=== PATIENT | male | born 1970 | race Caucasian/White ===

== ENCOUNTER 2017-08-07 11:44 | Emergency (ER) | payer BC | END 2017-08-07 12:28 | disposition home or self-care (01) | LOC: ERS 11:44 | DX: M54.12 Radiculopathy, cervical region (principal); E11.9 Type 2 diabetes mellitus without complications; E78.5 Hyperlipidemia, unspecified; I10 Essential (primary) hypertension; I25.10 Atherosclerotic heart disease of native coronary artery without angina pectoris; F41.9 Anxiety disorder, unspecified; F32.9 Major depressive disorder, single episode, unspecified; Z79.84 Long term (current) use of oral hypoglycemic drugs; Z79.82 Long term (current) use of aspirin; Z79.899 Other long term (current) drug therapy | CPT/HCPCS: 99283 ==

== ENCOUNTER 2017-10-14 18:17 | Emergency (ER) | payer BC ==
[2017-10-14] MEDS ORDERED: HYDROcodone/Acetaminophen 10/325 mg Tablet ONE (18:45)
--- NOTE | 2017-10-14 20:41 | RAD ---
LEFT HAND THREE VIEW 10/14/17 HISTORY: Injury to the left third and fourth finger. COMPARISON: None. FINDINGS: There is a comminuted distal tuft fracture of the third finger distal phalanx. The fourth finger does not appear to have an acute injury. There does appear to be a fracture of the tuft of the second fin marcia, the index finger, in a transverse orientation. IMPRESSION: Comminuted fracture through the middle finger distal phalanx tuft and transversely oriented fracture of the index finger distal phalanx tuft. POS: DMITRIY
== END 2017-10-14 19:15 | disposition home or self-care (01) ==
LOC: ERS 18:17
DX: S62.631A Displaced fracture of distal phalanx of left index finger, initial encounter for closed fracture (principal); S62.633A Displaced fracture of distal phalanx of left middle finger, initial encounter for closed fracture; E78.5 Hyperlipidemia, unspecified; I10 Essential (primary) hypertension; E11.9 Type 2 diabetes mellitus without complications; F31.89 Other bipolar disorder; F41.9 Anxiety disorder, unspecified; W22.8XXA Striking against or struck by other objects, initial encounter; Y99.0 Civilian activity done for income or pay

== ENCOUNTER 2018-07-29 16:24 | Emergency (ER) | payer BC ==
--- NOTE | 2018-07-29 16:59 | RAD ---
Radiograph left ankle 3 views: HISTORY: 47-year-old male with persistent posttraumatic pain FINDINGS: Ankle mortise is symmetrical and congruent. No fracture or subluxation IMPRESSION: Negative
--- NOTE | 2018-07-29 17:01 | RAD ---
XR Foot Lt 3 View STANDARD History: [Pain] Comparison: None. Findings: Lisfranc interval is maintained. There is a curvilinear lucency of the medial articular mar gin of the proximal phalanx head at the interphalangeal joint of the great toe. Adjacent soft tissue swelling. This appears to be either a fracture versus capsular calcification. Impression: Either capsular mock band effect from calcification medial aspect of the great toe interp halangeal joint versus nondisplaced fracture the proximal phalanx head. Clinical correlation advised for focal tenderness.
[2018-07-29] MEDS ORDERED: Acetaminophen/Codeine 30-300mg Tablet ONE (17:42)
== END 2018-07-29 17:47 | disposition home or self-care (01) ==
LOC: ERS 16:24
DX: S93.602A Unspecified sprain of left foot, initial encounter (principal); E11.9 Type 2 diabetes mellitus without complications; I10 Essential (primary) hypertension; I25.10 Atherosclerotic heart disease of native coronary artery without angina pectoris; F41.9 Anxiety disorder, unspecified; F32.9 Major depressive disorder, single episode, unspecified; Z79.899 Other long term (current) drug therapy; Z79.84 Long term (current) use of oral hypoglycemic drugs; Z79.82 Long term (current) use of aspirin; V29.9XXA Motorcycle rider (driver) (passenger) injured in unspecified traffic accident, initial encounter

== ENCOUNTER 2019-02-16 16:00 | Emergency (ER) | payer BC ==
[2019-02-16] MEDS ORDERED: Fluorescein Opthalmic Strip ONE (16:55)
[2019-02-16] MEDS ORDERED: Proparacaine 0.5% Opth 15 ML BOT ONE (16:55)
== END 2019-02-16 17:55 | disposition home or self-care (01) ==
LOC: ERS 16:00
DX: H10.022 Other mucopurulent conjunctivitis, left eye (principal); E11.9 Type 2 diabetes mellitus without complications; I10 Essential (primary) hypertension; F41.9 Anxiety disorder, unspecified; F32.9 Major depressive disorder, single episode, unspecified; Z79.84 Long term (current) use of oral hypoglycemic drugs; Z79.82 Long term (current) use of aspirin; Z79.899 Other long term (current) drug therapy
CPT/HCPCS: 99283

== ENCOUNTER 2019-06-04 13:04 | Observation (INO) | payer BC ==
[2019-06-04 13:31] LABS: #Basophils 0.1 thou/uL (0.0-0.2); #Eosinphils 0.1 thou/uL (0.0-0.7); #Lymphocytes 1.9 thou/uL (1.20-3.40); #Monocytes 0.3 thou/uL (0.11-0.59); #Neutrophils 4.1 thou/uL (1.40-6.50); %Basophils 0.9 % (0.0-1.0); %Eosinophils 2.1 % (0.0-10.0); %Lymphocytes 29.1 % (21.0-51.0); %Neutrophils 62.9 % (42.0-75.0); Hemoglobin 15.4 g/dL (14.0-18.0); Mean Corpuscular HGB CONC 35.5 g/dL (32.0-36.0); Mean Platelet Volume 8.6 fL (7.4-10.4); Platelet Count 194 thou/uL (130-400); RBC Distribution Width 10.7 % (11.5-14.5); Red Blood Cell (RBC) Count 4.66 mill/uL (4.70-6.10); White Blood Cell (WBC) Count 6.6 thou/uL (4.8-10.8)
[2019-06-04 13:52] LABS: ALT (SGPT) 64 U/L (8-55); AST (SGOT) 27 U/L (5-34); Albumin 4.5 g/dL (3.5-5.0); Alkaline Phosphatase 69 U/L (40-110); Anion Gap 14 mmol/L (10-20); BUN (Urea Nitrogen) 13 mg/dL (8.9-20.6); Bilirubin, Total 0.7 mg/dL (0.2-1.2); Calc. Creatinine Clearance 0 mL/min (70-130); Calcium 9.2 mg/dL (7.8-10.44); Carbon Dioxide 20 mmol/L (22-29); Chloride 107 mmol/L (98-107); Estimated GFR-MDRD 76; Globulin 2.6 g/dL (2.4-3.5); Glucose 263 mg/dL (70-105); Protein, Total 7.1 g/dL (6.0-8.3); Sodium 137 mmol/L (136-145)
--- NOTE | 2019-06-04 14:07 | RAD ---
PORTABLE UPRIGHT FRONTAL CHEST: Date: 06/04/2019 HISTORY: Dizziness and chest tightness. FINDINGS: Multilead transvenous AICD present, inserted via left subclavian approach. No pneumothorax or pleural fluid. No focal consolidation or alveolar edema. IMPRESSION: No acute findings. POS: SJDI
[2019-06-04] MEDS ORDERED: Nitroglycerin 2% Ointment 1 INCH/1 GM Packet ONE (14:52)
[2019-06-04 15:34] VITALS: BMI 28.6
[2019-06-04] MEDS ORDERED: Acetaminophen 325 MG TAB PO PRN ×2 (15:47→16:57)
[2019-06-04] MEDS ORDERED: Ondansetron PF 4 MG/2 ML Vial IVP PRN ×2 (15:47→16:57)
[2019-06-04] MEDS ORDERED: Ondansetron ODT 4 MG TAB SL PRN (15:47)
[2019-06-04] MEDS ORDERED: Aspirin Chewable 81 MG TAB PO SCH (16:00)
[2019-06-04] MEDS ORDERED: Nitroglycerin 0.4 MG TAB (25 Tab Bottle) PO PRN (16:57)
[2019-06-04] MEDS ORDERED: Ondansetron ODT 4 MG TAB PO PRN (16:57)
[2019-06-04] MEDS ORDERED: hydrALAZINE 20 MG/ML VIAL SLOW IVP PRN (16:57)
[2019-06-04] MEDS ORDERED: HumaLOG 300 UNITS/3 ML VIAL SC PRN (16:58)
[2019-06-04] MEDS ORDERED: Dextrose 5% in Water 1,000 ML IV PRN (16:58)
[2019-06-04] MEDS ORDERED: Dextrose 50% Abboject 50 ML SYRINGE SLOW IVP PRN (16:58)
[2019-06-04 17:07] LABS: Troponin I Less than 0.010 ng/mL (< 0.028)
[2019-06-04] MEDS: Carvedilol 3.125 MG TAB PO SCH (17:41)
[2019-06-04] MEDS: HumaLOG 300 UNITS/3 ML VIAL SC PRN (17:41)
[2019-06-04 20:18] LABS: Troponin I Less than 0.010 ng/mL (< 0.028)
[2019-06-04] MEDS: Nitroglycerin 2% Ointment 1 INCH/1 GM Packet TOP SCH (21:22)
[2019-06-05 04:42] LABS: #Eosinphils 0.1 thou/uL (0.0-0.7); #Lymphocytes 2.7 thou/uL (1.20-3.40); #Monocytes 0.4 thou/uL (0.11-0.59); #Neutrophils 5.5 thou/uL (1.40-6.50); %Basophils 0.5 % (0.0-1.0); %Eosinophils 1.1 % (0.0-10.0); %Lymphocytes 30.9 % (21.0-51.0); %Neutrophils 62.5 % (42.0-75.0); Hemoglobin 14.6 g/dL (14.0-18.0); Mean Corpuscular HGB CONC 35.5 g/dL (32.0-36.0); Mean Corpuscular Hemoglobin 33.6 pg (27.0-31.0); Mean Corpuscular Volume 94.4 fL (78.0-98.0); Mean Platelet Volume 8.2 fL (7.4-10.4); Platelet Count 172 thou/uL (130-400); RBC Distribution Width 10.9 % (11.5-14.5); Red Blood Cell (RBC) Count 4.34 mill/uL (4.70-6.10); White Blood Cell (WBC) Count 8.8 thou/uL (4.8-10.8)
[2019-06-05 04:58] LABS: Anion Gap 11 mmol/L (10-20); BUN (Urea Nitrogen) 13 mg/dL (8.9-20.6); Calc. Creatinine Clearance 136 mL/min (70-130); Calcium 9.2 mg/dL (7.8-10.44); Carbon Dioxide 26 mmol/L (22-29); Cardiac Risk 5.8 (Less than 4.5); Chloride 105 mmol/L (98-107); Cholesterol 180 mg/dl (< 200 Desired); Estimated GFR-MDRD 84; Glucose 197 mg/dL (70-105); HDL Cholesterol 31 mg/dL (>60 Neg Risk); LDL Cholesterol, Calculated 121 mg/dL; Potassium 4.2 mmol/L (3.5-5.1); Sodium 138 mmol/L (136-145); Triglycerides 138 mg/dL (Less than 150)
--- NOTE | 2019-06-05 06:07 | HP ---
PRIMARY CARE PHYSICIAN: Dr. Quiroga. CHIEF COMPLAINT: "I had chest pain." HISTORY OF PRESENT ILLNESS: Mr. Contreras is a pleasant 48-year-old gentleman who has a history of a nonischemic cardiomyopathy. He also has an AICD. He says that in the past week, he has been noticing that when he walks or does any minimal exertion, he will start getting pressure in his chest. He also says it feels a bit tight and he will get short of breath. He had called Dr. Engel's office and he was going to have an appointment for tomorrow, but he was at [employer] and he was passing out water in the parking lot when he started feeling a pressure in his chest. He started to get dizzy and was noticing some shortness of breath. He also noted a numbness which went down his left arm and into his left leg. He also started feeling weak and as a result, he came to the ER for evaluation. He says these symptoms lasted about 45 minutes to an hour. He was given aspirin in the emergency room and his symptoms improved. The patient denies any palpitations. He denies any swelling in his legs. No PND or orthopnea, but he does admit to the dyspnea on exertion. REVIEW OF SYSTEMS: With regard to the review of systems, all systems are reviewed and are negative, except for that mentioned in the history of present illness. PAST MEDICAL HISTORY: Significant for nonischemic cardiomyopathy, status post AICD; atrial fibrillation; hypertension; and diabetes mellitus, type 2. PAST SURGICAL HISTORY: He has had an AICD placed as well as an elbow surgery. ALLERGIES: TO CLEAR TAPE. SOCIAL HISTORY: He is a nonsmoker and nondrinker. He is , has 5 children. FAMILY HISTORY: Significant for diabetes mellitus in his grandfather and uncle who had heart disease. CURRENT MEDICATIONS: Include; 1. Aspirin 325 mg daily. 2. Bupropion XL 150 mg daily. 3. Zyrtec 10 mg daily. 4. Vitamin D3, 1000 units daily. 5. Fluticasone 1 spray each naris daily. 6. Metformin 500 mg extended release t.i.d. 7. Sildenafil 25 mg as needed. 8. Telmisartan 40 mg daily. PHYSICAL EXAMINATION: GENERAL: He is alert and oriented. He appears to be in no acute distress. He is well developed and well nourished. VITAL SIGNS: Blood pressure 126/78, heart rate 98, respiratory rate of 18, temperature is 97.9, and O2 saturation is 97% on room air. HEENT: Pupils are equal, round, and reactive to light. Extraocular muscles are intact. Sclerae anicteric. NECK: No adenopathy. No bruits. LUNGS: Clear to auscultation. No wheezing. No rales. No rhonchi. CARDIOVASCULAR: He has a normal S1, S2. There is no S3 or S4. No murmurs, clicks, or rubs. ABDOMEN: Soft, nontender, and nondistended. Positive for bowel sounds. No rebound. No guarding. No organomegaly. EXTREMITIES: There is no clubbing or cyanosis. No edema. No calf tenderness. No joint effusions. Pulses are palpable. SKIN AND INTEGUMENT: No skin changes. No rash. LABORATORY RESULTS: White blood cell count 6.6, hemoglobin 15.4, hematocrit is 43.3, and platelet count is 194. Sodium 137, potassium 4.0, chloride is 107, CO2 is 20, BUN of 13, creatinine 1.05, and glucose is 263. Troponin is 0.010. On his EKG, it is atrial sensed ventricular paced and this is by my reading. He had a chest x-ray. Heart size looks normal. You can see the AICD present. There were no effusions and no infiltrates. This is by my reading. ASSESSMENT: 1. This is a pleasant 48-year-old gentleman, presents with chest pain on exertion, who has a history of nonischemic cardiomyopathy. He has not had a recent stress test and he believes his last echo was about a year ago. He will be admitted and placed on aspirin, nitrates, and beta-saul as tolerated. We will get a nuclear stress test as well as an echo and we will also consult his maintenance mechanic engine for further recommendations. 2. Diabetes mellitus. Metformin will be held in the event that he needs a cardiac catheterization and he will be placed on p.r.n. sliding scale. 3. Hypertension. We will restart his home medications as well as have medicines as needed. 4. Atrial fibrillation. This appears to be clinically stable and it does not appear that he is on anticoagulation at this time. Further recommendations to follow. Job ID: [id number]
[2019-06-05] MEDS: Nitroglycerin 2% Ointment 1 INCH/1 GM Packet TOP SCH ×2 (06:47→14:03)
[2019-06-05] MEDS ORDERED: Enoxaparin Sodium 40 MG/0.4 ML SYRINGE SC SCH (09:00)
[2019-06-05] MEDS ORDERED: Aspirin 325 mg Enteric Coated Tablet PO SCH (09:00)
[2019-06-05] MEDS ORDERED: Losartan 25 MG TAB PO SCH (09:00)
[2019-06-05] MEDS ORDERED: Ketorolac Tromethamine 30 MG/ML VIAL IVP SCH (09:15)
--- NOTE | 2019-06-05 09:37 | CON ---
DATE OF CONSULTATION: HISTORY OF PRESENT ILLNESS: The patient is a 48-year-old gentleman with a history of a cardiomyopathy, who presents with recurrent chest discomfort. The patient was seen in 2009 with chest pain. He underwent a cardiac catheterization. He was found to have a severe cardiomyopathy with normal coronary arteries. The patient subsequently had placement of AICD. The patient was in his usual state of health when he developed mid sternal chest discomfort. He states this occurs daily and usually lasts 30-40 minutes. It occurs with and without exertion. It seems to be much worse when he takes a deep breath. The patient denies any fevers or chills. PAST MEDICAL HISTORY: 1. Cardiomyopathy. 2. Diabetes mellitus. 3. Hypertension. 4. History of paroxysmal atrial fibrillation. PAST SURGICAL HISTORY: Elbow surgery. ALLERGIES: NO KNOWN DRUG ALLERGIES. SOCIAL HISTORY: Nonsmoker. FAMILY HISTORY: Positive family history of heart disease. MEDICATIONS: 1. Micardis 40 daily. 2. Metformin 500 t.i.d. 3. Wellbutrin 150 daily. 4. Aspirin 325 daily. 5. Zyrtec 10 daily. REVIEW OF SYSTEMS: Ten-point system is otherwise unremarkable. No history of easy bruising or bleeding. PHYSICAL EXAMINATION: GENERAL: Well-developed gentleman, in no acute distress. VITAL SIGNS: Blood pressure 95/51. NECK: Showed no jugular venous distention. LUNGS: Clear to auscultation. HEART: Regular rate and rhythm. Normal S1 and S2. No murmurs. ABDOMEN: Nondistended. EXTREMITIES: Show no edema. VASCULAR: Radial pulses are 2+. LABORATORY RESULTS: Sodium 138, potassium 4.2, chloride 105, bicarbonate 26, BUN 13, creatinine 0.96, glucose 197. Troponin less than 0.01. Cholesterol was 180 , LDL 121, triglycerides were 138. IMPRESSION: 1. Atypical chest pain. 2. Cardiomyopathy. 3. Hypertension. 4. History of paroxysmal atrial fibrillation. 5. History of AICD. This patient presents with chest pain as primary atypical feature. He will undergoa stress test today to make sure there is no evidence of ischemia. We will treat the patient with Toradol. The patient needs to be on lipid-lowering medication with elevated triglycerides. MTDD
[2019-06-05] MEDS ORDERED: ADENOSINE 60 MG/20 ML VIAL ONE (11:38)
[2019-06-05] MEDS ORDERED: Ibuprofen 600 MG TAB PO SCH (12:00)
[2019-06-05] MEDS: Carvedilol 3.125 MG TAB PO SCH ×2 (14:04→18:32)
[2019-06-05 14:29] VITALS: BP 119/68; TEMP 97.8
--- NOTE | 2019-06-05 15:00 | NM ---
CARDIAC SPECT: CLINICAL HISTORY: 48-year-old male with chest pain, cardiomyopathy, AICD, atrial fibrillation, hypertension, and diabet es. TECHNIQUE: A myocardial perfusion scan was performed using the single isotope one day protocol with technetium-9 9m sestamibi. 10 mCi were injected intravenously for the rest exam followed by 27 mCi for the stress exam. Pharmacologic stress with Adenosine was monitored and interpreted by Dr. Weeks. FINDINGS: There is a small fixed defect in the distal anteroseptal wall normal thickness and contractility. No reversible defects are seen. GATED SPECT LVEF: 78%. WALL MOTION EXAM: Normal. IMPRESSION: No evidence of reversible ischemia. POS: JAZA
--- NOTE | 2019-06-05 17:06 | PDOC.HOSPP ---
- Subjective Encounter Date: 06/05/19 Encounter Time: 17:04 Subjective: Mr. Contreras was seen today in follow-up of chest pain. He does not have any complaints. - Objective Vital Signs & Weight: Vital Signs (12 hours) Temp Pulse Resp BP Pulse Ox 06/05/19 14:10 97.8 F 80 20 119/68 95 06/05/19 07:45 97.9 F 75 20 116/66 96 Weight Weight 223 lb I&O: 06/04/19 06/05/19 06/06/19 06:59 06:59 06:59 Intake Total 240 Balance 240 Result Diagrams: 06/05/19 04:26 06/05/19 04:26 Additional Labs: Accuchecks 06/05/19 06/04/19 05:44 17:22 POC Glucose 225 H 277 H Hospitalist ROS - Medication Medications: Active Medications Generic Name Dose Route Start Last Admin Trade Name Freq PRN Reason Stop Dose Admin Acetaminophen 650 mg 06/04/19 16:57 06/04/19 23:36 Tylenol PO 650 mg Q4H PRN Administration Headache/Fever/Mild Pain (1-3) Aspirin 325 mg 06/05/19 09:00 06/05/19 14:04 Ecotrin PO 325 mg DAILY CLAIRE Administration Carvedilol 3.125 mg 06/04/19 17:00 06/05/19 14:04 Coreg PO 3.125 mg BID-WM CLAIRE Administration Enoxaparin Sodium 40 mg 06/05/19 09:00 06/05/19 14:04 Lovenox SC 40 mg 0900 CLAIRE Administration Ibuprofen 600 mg 06/05/19 12:00 06/05/19 14:05 Motrin PO Not Given Q8H CLAIRE Insulin Human Lispro 0 units 06/04/19 16:58 06/04/19 17:41 Humalog SC 6 unit .MODERATE SLIDING SC PRN Administration Moderate Correctional Scale Losartan Potassium 50 mg 06/05/19 09:00 06/05/19 14:04 Cozaar PO 50 mg DAILY CLAIRE Administration Nitroglycerin 0.5 inch 06/04/19 22:00 06/05/19 14:03 Nitro-Bid 2% Ointment TOP Not Given Q8HR CLAIRE Sodium Chloride 10 ml 06/05/19 09:06 06/05/19 09:21 Flush - Normal Saline IVF 10 ml PRN PRN Administration Saline Flush - Exam Eye: PERRL Heart: RRR, no murmur, no gallops, no rubs, normal peripheral pulses Respiratory: CTAB, no wheezes, no rales, no ronchi, normal chest expansion, no tachypnea, normal percussion Gastrointestinal: soft, non-tender, non-distended, normal bowel sounds, no palpable masses, no hepatomegaly Extremities: no cyanosis, no edema Hosp A/P (1) Chest pain Code(s): R07.9 - CHEST PAIN, UNSPECIFIED Status: Active (2) Cardiomyopathy Code(s): I42.9 - CARDIOMYOPATHY, UNSPECIFIED Status: Active (3) Hyperlipidemia Code(s): E78.5 - HYPERLIPIDEMIA, UNSPECIFIED Status: Chronic - Plan * Chest pain- resolved * Stress test was negative, and the patient's chest pain description is now more atypical * Stable for discharge home
[2019-06-05] MEDS: HumaLOG 300 UNITS/3 ML VIAL SC PRN (18:33)
[2019-06-05] MEDS ORDERED: Icosapent Ethyl 1 GM CAPSULE PO SCH (21:00)
[2019-06-05] MEDS ORDERED: Rosuvastatin 10 MG TAB PO SCH (21:00)
--- NOTE | 2019-06-06 00:44 | DIS ---
DATE OF ADMISSION: 06/04/2019 DATE OF DISCHARGE: 06/05/2019 The patient's primary care physician is Dr. Quiroga. DISCHARGE DISPOSITION: Home. PRIMARY DISCHARGE DIAGNOSES: 1. Chest pain, probable noncardiac. 2. History of nonischemic cardiomyopathy. 3. Hypertension. 4. Dyslipidemia. 5. Diabetes mellitus, type 2. DISCHARGE MEDICATIONS: 1. Please note that Crestor 10 mg at bedtime was added to his regimen. 2. Continue telmisartan 40 mg daily. 3. Sildenafil 20 mg as needed. 4. Metformin 500 mg extended release t.i.d. 5. Flonase nasal spray in each naris daily. 6. Desvenlafaxine 50 mg extended release daily. 7. Vitamin D3 at 1000 units daily. 8. Zyrtec 10 mg daily. 9. Bupropion 150 mg extended release twice a day. 10. Aspirin 325 mg daily. PROCEDURES DONE DURING ADMISSION: The patient had a nuclear stress test, which was negative for any reversible ischemia. CODE STATUS: Full code. ALLERGIES: NO KNOWN DRUG ALLERGIES. HOSPITAL COURSE: Mr. Contreras is a pleasant 48-year-old gentleman who presented to the emergency room with complaints of chest pain. He has multiple cardiac risk factors, including hypertension and diabetes. Therefore, he was placed in observation. He was ruled out and a stress test was obtained and was negative. He was seen by his first aid nurse, who listed at a slightly different characteristic of his pain. The patient said that it was more when he took in a deep breath and therefore a bit atypical. It was relieved with ibuprofen. The patient was subsequently able to be discharged home. He was started on Crestor 10 mg daily for his dyslipidemia and is to have close outpatient followup. Job ID: [id number]
== END 2019-06-05 19:17 | disposition home or self-care (01) ==
LOC: ERS 13:04 → 2NO 14:17
PROVIDERS: ADMIT Internal Medicine; ATTEND Internal Medicine
DX: R07.89 Other chest pain (principal); I42.8 Other cardiomyopathies; E11.9 Type 2 diabetes mellitus without complications; I10 Essential (primary) hypertension; I48.0 Paroxysmal atrial fibrillation; E78.5 Hyperlipidemia, unspecified; Z79.82 Long term (current) use of aspirin; Z79.84 Long term (current) use of oral hypoglycemic drugs; Z79.899 Other long term (current) drug therapy; Z91.048 Other nonmedicinal substance allergy status; Z95.810 Presence of automatic (implantable) cardiac defibrillator
CPT/HCPCS: 36415; 36416; 71045; 78452; 80048; 80053; 80061; 83880; 84484; 85025; 93005; 93017; 93306; 94760; 96372; 96374; A9500; G0378; J0153; J1650; J1885

== ENCOUNTER 2020-12-31 15:46 | Outpatient (CLI) | payer BC | END 2020-12-31 15:47 | disposition home or self-care (01) | LOC: CTENTCT 15:46 | PROVIDERS: ATTEND Otolaryngology Plastic Surgery within the Head & Neck | DX: J32.8 Other chronic sinusitis (principal) | CPT/HCPCS: 70486 ==

== ENCOUNTER 2021-01-24 15:38 | Outpatient (CLI) | payer BC ==
[2021-01-25 15:33] LABS: SARS-CoV-2 PCR by NAA Not Detected (NotDetected)
== END 2021-01-24 15:39 | disposition home or self-care (01) ==
LOC: LABBT 15:38
PROVIDERS: ATTEND Otolaryngology Plastic Surgery within the Head & Neck
DX: Z01.818 Encounter for other preprocedural examination (principal); J32.8 Other chronic sinusitis; J34.2 Deviated nasal septum; J34.3 Hypertrophy of nasal turbinates; J31.0 Chronic rhinitis; Z20.822 Contact with and (suspected) exposure to COVID-19
CPT/HCPCS: 93005; 93010; U0003; U0005

== ENCOUNTER 2021-01-29 07:34 | Day surgery (SDC) | payer BC ==
[2021-01-27 14:12] VITALS: BMI 28.2
[2021-01-29] MEDS ORDERED: Oxymetazoline HCl 0.05% (30 ML BOT) ONE (08:02)
[2021-01-29] MEDS ORDERED: Lidocaine 1% w/Epinephrine 1:100K 20 ML VIAL ONE (09:52)
[2021-01-29] MEDS ORDERED: AFRIN NASAL MIST 15 ML BOT ONE (09:53)
[2021-01-29] MEDS ORDERED: Bacitracin Zinc Ointment 30 gm TUBE ONE (09:53)
[2021-01-29] MEDS ORDERED: Fentanyl 100 MCG/2 ML VIAL ONE ×3 (09:57→12:36)
[2021-01-29] MEDS ORDERED: Midazolam HCl 2 mg/2 ml Vial ONE (09:57)
[2021-01-29] MEDS ORDERED: Dexamethasone 20 MG/5 ML VIAL ONE (10:42)
[2021-01-29] MEDS ORDERED: Rocuronium Bromide 10 MG/ML (10ML VIAL) ONE (10:42)
[2021-01-29] MEDS ORDERED: Glycopyrrolate 0.2 MG/ML 5 ML SYRINGE ONE (10:42)
[2021-01-29] MEDS ORDERED: Lidocaine 1% PF 5 ML VIAL ONE (10:42)
[2021-01-29] MEDS ORDERED: Ondansetron PF 4 MG/2 ML Vial ONE (10:42)
[2021-01-29] MEDS ORDERED: PROPOFOL 200 MG/20 ML VIAL ONE (10:42)
[2021-01-29] MEDS ORDERED: HYDROcodone/Acetaminophen 5/325 mg Tablet ONE (13:20)
== END 2021-01-29 14:00 | disposition home or self-care (01) ==
LOC: SDC 07:34
PROVIDERS: ATTEND Otolaryngology Plastic Surgery within the Head & Neck
PROC: 09TU8ZZ Resection of Right Ethmoid Sinus, Via Natural or Artificial Opening Endoscopic (ICD-10-PCS; principal; 2021-01-29)
PROC: 099Q8ZZ Drainage of Right Maxillary Sinus, Via Natural or Artificial Opening Endoscopic (ICD-10-PCS; principal; 2021-01-29)
PROC: 09SM0ZZ Reposition Nasal Septum, Open Approach (ICD-10-PCS; principal; 2021-01-29)
PROC: 099R8ZZ Drainage of Left Maxillary Sinus, Via Natural or Artificial Opening Endoscopic (ICD-10-PCS; principal; 2021-01-29)
PROC: 09TV8ZZ Resection of Left Ethmoid Sinus, Via Natural or Artificial Opening Endoscopic (ICD-10-PCS; principal; 2021-01-29)
DX: J32.9 Chronic sinusitis, unspecified (principal); J34.2 Deviated nasal septum; J34.3 Hypertrophy of nasal turbinates; J34.89 Other specified disorders of nose and nasal sinuses; I42.9 Cardiomyopathy, unspecified; I44.7 Left bundle-branch block, unspecified; I48.91 Unspecified atrial fibrillation; E11.9 Type 2 diabetes mellitus without complications; I10 Essential (primary) hypertension; Z79.82 Long term (current) use of aspirin; Z79.84 Long term (current) use of oral hypoglycemic drugs; Z79.899 Other long term (current) drug therapy; Z91.048 Other nonmedicinal substance allergy status; Z95.810 Presence of automatic (implantable) cardiac defibrillator
CPT/HCPCS: J2250; J3010

== ENCOUNTER 2021-03-03 10:19 | Emergency (ER) | payer BC ==
[2021-03-03 17:06] LABS: SARS-CoV-2 NAA Rapid Test DETECTED (NotDetected)
== END 2021-03-03 10:44 | disposition home or self-care (01) ==
LOC: ERS 10:19
DX: U07.1 COVID-19 (principal)
CPT/HCPCS: 0240U; 99283

== ENCOUNTER 2021-03-09 17:33 | Emergency (ER) | payer BC | END 2021-03-09 19:22 | disposition home or self-care (01) | LOC: ERS 17:33 | DX: U07.1 COVID-19 (principal); J20.8 Acute bronchitis due to other specified organisms; I25.10 Atherosclerotic heart disease of native coronary artery without angina pectoris; E11.9 Type 2 diabetes mellitus without complications; Z79.899 Other long term (current) drug therapy; Z79.82 Long term (current) use of aspirin; Z79.84 Long term (current) use of oral hypoglycemic drugs | CPT/HCPCS: 71045 ==

== ENCOUNTER 2021-05-23 14:13 | Emergency (ER) | payer BC, OTHER ==
[2021-05-23 14:53] LABS: Actual Bicarbonate (HCO3v) 19 mEq/L (22-28); Analyzer IN Cardio ER; Base Excess -3.4 mEq/L (-2.0 to +3.0); Calcium, Ionized (venous) 1.16 mmol/L (1.16-1.32); Chloride (VBG) 103 mmol/L (98-106); Hemoglobin (Hb) 15.2 g/dL (13.1-17.2); Potassium (VBG) 3.75 mmol/L (3.70-5.30); Sodium 136.8 mmol/L (133-146); pH (venous) 7.44 (7.32-7.43)
[2021-05-23 14:54] LABS: #Eosinphils 0.1 thou/uL (0.0-0.7); #Lymphocytes 1.4 thou/uL (1.20-3.40); #Monocytes 0.4 thou/uL (0.11-0.59); #Neutrophils 8.2 thou/uL (1.40-6.50); %Basophils 0.2 % (0.0-1.0); %Eosinophils 0.7 % (0.0-10.0); %Lymphocytes 13.7 % (21.0-51.0); %Monocytes 3.8 % (0.0-10.0); %Neutrophils 81.5 % (42.0-75.0); Hemoglobin 14.5 g/dL (14.0-18.0); Mean Corpuscular HGB CONC 33.7 g/dL (32.0-36.0); Mean Corpuscular Hemoglobin 31.4 pg (27.0-31.0); Mean Corpuscular Volume 93.1 fL (78.0-98.0); Mean Platelet Volume 7.2 fL (7.4-10.4); Platelet Count 233 thou/uL (130-400); RBC Distribution Width 11.7 % (11.5-14.5); Red Blood Cell (RBC) Count 4.62 mill/uL (4.70-6.10)
[2021-05-23 15:17] LABS: ALT (SGPT) 28 U/L (8-55); AST (SGOT) 18 U/L (5-34); Albumin 4.3 g/dL (3.5-5.0); Alkaline Phosphatase 80 U/L (40-110); Anion Gap 15 mmol/L (10-20); BUN (Urea Nitrogen) 16 mg/dL (8.9-20.6); Bilirubin, Total 0.5 mg/dL (0.2-1.2); Calc. Creatinine Clearance 0 mL/min (70-130); Calcium 9.7 mg/dL (7.8-10.44); Carbon Dioxide 20 mmol/L (22-29); Chloride 105 mmol/L (98-107); Globulin 2.9 g/dL (2.4-3.5); Glucose 269 mg/dL (70-105); Potassium 3.7 mmol/L (3.5-5.1); Protein, Total 7.2 g/dL (6.0-8.3); Sodium 136 mmol/L (136-145)
== END 2021-05-23 15:30 | disposition home or self-care (01) ==
LOC: ERS 14:13
DX: T59.811A Toxic effect of smoke, accidental (unintentional), initial encounter (principal); E11.9 Type 2 diabetes mellitus without complications; I25.10 Atherosclerotic heart disease of native coronary artery without angina pectoris
CPT/HCPCS: 36415; 71045; 80053; 82805; 85025; 93005

== ENCOUNTER 2021-10-22 13:11 | Outpatient (CLI) | payer BC ==
[2021-10-22] MEDS ORDERED: Iopamidol 300 61% 50 ML VIAL FS ONE (14:00)
[2021-10-22] MEDS ORDERED: Sodium Chloride 0.9% (PF) 10 ML VIAL ONE (14:00)
[2021-10-22] MEDS ORDERED: EPINEPHrine 1 MG/ML AMP ONE (14:00)
[2021-10-22] MEDS ORDERED: Lidocaine 1% PF 5 ML VIAL ONE (14:00)
== END 2021-10-22 13:12 | disposition home or self-care (01) ==
LOC: RAD 13:11
PROVIDERS: ATTEND Orthopaedic Surgery
DX: S46.011A Strain of muscle(s) and tendon(s) of the rotator cuff of right shoulder, initial encounter (principal); S43.431A Superior glenoid labrum lesion of right shoulder, initial encounter
CPT/HCPCS: 23350; J0171; Q9967

== ENCOUNTER 2021-11-17 15:38 | Outpatient (CLI) | payer BC ==
[2021-11-17 17:54] LABS: #Eosinphils 0.1 10x3/uL (0.0-0.5); #Monocytes 0.4 10x3/uL (0.0-1.1); #Neutrophils 5.9 10x3/uL (1.5-8.4); %Basophils 0.4 % (0.0-2.0); %Eosinophils 0.8 % (0.0-6.0); %Lymphocytes 28.5 % (18.0-47.0); %Monocytes 3.9 % (0.0-10.0); %Neutrophils 66.1 % (40.0-75.0); Hemoglobin 14.3 g/dL (13.5-17.5); Mean Corpuscular HGB CONC 33.6 g/dL (32.0-36.0); Mean Corpuscular Hemoglobin 31.4 pg (27.0-33.0); Mean Corpuscular Volume 93.6 fl (81.2-95.1); Mean Platelet Volume 10.5 fl (7.4-10.4); Platelet Count 211 10x3/uL (150-450); RBC Distribution Width 11.6 % (11.5-14.5); Red Blood Cell (RBC) Count 4.55 10x6/uL (4.32-5.72)
[2021-11-17 18:14] LABS: Anion Gap 13 mmol/L (10-20); BUN (Urea Nitrogen) 18 mg/dL (8.9-20.6); Calc. Creatinine Clearance 0 mL/min (70-130); Calcium 9.5 mg/dL (7.8-10.44); Carbon Dioxide 26 mmol/L (22-29); Chloride 103 mmol/L (98-107); Estimated GFR 105; Glucose 146 mg/dL (70-105); Potassium 3.9 mmol/L (3.5-5.1); Sodium 138 mmol/L (136-145)
== END 2021-11-17 15:39 | disposition home or self-care (01) ==
LOC: LABBT 15:38
PROVIDERS: ATTEND Orthopaedic Surgery
DX: Z01.818 Encounter for other preprocedural examination (principal); Z20.822 Contact with and (suspected) exposure to COVID-19
CPT/HCPCS: 80048; 85025; 87811; 93005; 93010

== ENCOUNTER 2022-12-09 14:34 | Emergency (ER) | payer BC ==
[2022-12-09] MEDS ORDERED: Fluorescein Opthalmic Strip ONE ×3 (15:33→15:57)
[2022-12-09] MEDS ORDERED: Proparacaine 0.5% Opth 15 ML BOT ONE ×2 (15:35→15:59)
== END 2022-12-09 16:18 | disposition home or self-care (01) ==
LOC: ERS 14:34
DX: H10.9 Unspecified conjunctivitis (principal); I25.10 Atherosclerotic heart disease of native coronary artery without angina pectoris; E11.9 Type 2 diabetes mellitus without complications
CPT/HCPCS: 99283

== ENCOUNTER 2023-03-26 03:30 | Emergency (ER) | payer BC ==
[2023-03-26 04:54] LABS: SARS-CoV-2 NAA Rapid Test Not Detected (NotDetected)
[2023-03-26] MEDS ORDERED: Dexamethasone 10 MG/ML VIAL ONE (05:30)
[2023-03-26] MEDS ORDERED: Ketorolac Tromethamine 30 MG (1 mL) VIAL ONE (05:30)
== END 2023-03-26 05:57 | disposition home or self-care (01) ==
LOC: ERS 03:30
DX: J02.9 Acute pharyngitis, unspecified (principal); E11.9 Type 2 diabetes mellitus without complications
CPT/HCPCS: 87081; 87430; 96372; 99283; J1100; J1885

== ENCOUNTER 2023-11-29 16:17 | Outpatient (CLI) | payer BC ==
[2023-11-29 16:40] LABS: #Basophils 0.04 10x3/uL (0.0-0.2); %Basophils 0.5 % (0.0-1.0); %Eosinophils 0.9 % (0.0-10.0); %Lymphocytes 26.3 % (21.0-51.0); %Monocytes 6.4 % (0.0-10.0); %Neutrophils 65.5 % (42.0-75.0); Hematocrit 41.4 % (42.0-52.0); Mean Corpuscular HGB CONC 33.8 g/dL (32.0-36.0); Mean Corpuscular Hemoglobin 31.5 pg (27.0-31.0); Mean Platelet Volume 10.2 fL (7.4-10.4); Platelet Count 184 10x3/uL (130-400); RBC Distribution Width 11.9 % (11.5-14.5); Red Blood Cell (RBC) Count 4.45 mill/uL (4.70-6.10)
[2023-11-29 16:53] LABS: Anion Gap 11 mmol/L (10-20); BUN (Urea Nitrogen) 20 mg/dL (8.4-25.7); Calc. Creatinine Clearance 0 mL/min (70-130); Calcium 9.3 mg/dL (7.8-10.44); Carbon Dioxide 24 mmol/L (22-29); Chloride 104 mmol/L (98-107); Estimated GFR 105; Glucose 227 mg/dL (70-105); Potassium 3.7 mmol/L (3.5-5.1); Sodium 135 mmol/L (136-145)
== END 2023-11-29 16:18 | disposition home or self-care (01) ==
LOC: LABBT 16:17
PROVIDERS: ATTEND Internal Medicine Cardiovascular Disease
DX: Z01.818 Encounter for other preprocedural examination (principal)
CPT/HCPCS: 80048; 85025; 93005; 93010

== ENCOUNTER 2023-12-03 05:37 | Day surgery (SDC) | payer BC ==
[2023-11-29 16:32] VITALS: BMI 27.7
[2023-12-03] MEDS ORDERED: Bupivacaine PF 0.5% 30 ML VIAL ONE (06:52)
[2023-12-03] MEDS ORDERED: Bacitracin Zinc Ointment 30 gm TUBE ONE (06:52)
[2023-12-03] MEDS ORDERED: Fentanyl 250 MCG/5 ML VIAL ONE (07:01)
[2023-12-03] MEDS ORDERED: PROPOFOL 40 ML ONE (07:01)
[2023-12-03] MEDS ORDERED: Sodium Chloride 0.9% 100 ML ONE (07:03)
[2023-12-03] MEDS ORDERED: CEFAZOLIN 2 GM VIAL ONE (07:03)
[2023-12-03] MEDS ORDERED: Lidocaine 1% PF 5 ML VIAL ONE (07:20)
[2023-12-03] MEDS ORDERED: PHENYLEPHRINE-NS 100 MCG/ML 10 ML SYRINGE ONE (07:29)
[2023-12-03] MEDS ORDERED: Ondansetron PF 4 MG/2 ML Vial ONE (07:40)
[2023-12-03] MEDS ORDERED: Dexamethasone 4 mg/ml Vial ONE (07:40)
[2023-12-03] MEDS ORDERED: Glycopyrrolate 0.2 MG/ML 5 ML SYRINGE ONE (08:11)
[2023-12-03] MEDS ORDERED: Ketorolac Tromethamine 30 MG (1 mL) VIAL ONE (09:05)
== END 2023-12-03 10:36 | disposition home or self-care (01) ==
LOC: SDC 05:37
PROVIDERS: ATTEND Orthopaedic Surgery Hand Surgery
PROC: 01N50ZZ Release Median Nerve, Open Approach (ICD-10-PCS; principal; 2023-12-03)
DX: G56.03 Carpal tunnel syndrome, bilateral upper limbs (principal); G56.23 Lesion of ulnar nerve, bilateral upper limbs; G54.0 Brachial plexus disorders; G54.2 Cervical root disorders, not elsewhere classified; I42.9 Cardiomyopathy, unspecified; F32.9 Major depressive disorder, single episode, unspecified; I48.91 Unspecified atrial fibrillation; E78.5 Hyperlipidemia, unspecified; E55.9 Vitamin D deficiency, unspecified; H91.90 Unspecified hearing loss, unspecified ear; E11.9 Type 2 diabetes mellitus without complications; Z98.890 Other specified postprocedural states; Z87.891 Personal history of nicotine dependence; Z79.51 Long term (current) use of inhaled steroids; Z79.82 Long term (current) use of aspirin; Z79.2 Long term (current) use of antibiotics; Z79.84 Long term (current) use of oral hypoglycemic drugs; Z79.899 Other long term (current) drug therapy; Z88.8 Allergy status to other drugs, medicaments and biological substances
CPT/HCPCS: A6223; J0665; J1100; J1885; J2405; J2704; J3010

== ENCOUNTER 2024-03-18 13:33 | Emergency (ER) | payer BC ==
[2024-03-18] MEDS ORDERED: Iopamidol-370 76% 500 ML MDV (1 ML CHARGE) ONE (14:09)
[2024-03-18 14:49] LABS: Actual Bicarbonate (HCO3v) 19.2 mEq/L (22-28); Analyzer IN Cardio ER; Base Excess -5.3 mEq/L (-2.0 to +3.0); Chloride (VBG) 99 mmol/L (98-106); Hematocrit-VBG 48 % (42.0-52.0); Hemoglobin (Hb) 16.2 g/dL (13.1-17.2); Potassium (VBG) 3.83 mmol/L (3.70-5.30); Sodium 138 mmol/L (133-146)
[2024-03-18] MEDS ORDERED: Morphine 4 MG/ML VIAL ONE (15:00)
[2024-03-18 15:05] LABS: #Basophils 0.04 10x3/uL (0.0-0.2); %Basophils 0.3 % (0.0-1.0); %Eosinophils 0.6 % (0.0-10.0); %Lymphocytes 5.6 % (21.0-51.0); %Monocytes 4.9 % (0.0-10.0); %Neutrophils 88.1 % (42.0-75.0); Hematocrit 44.4 % (42.0-52.0); Hemoglobin 14.9 g/dL (14.0-18.0); Mean Corpuscular HGB CONC 33.6 g/dL (32.0-36.0); Mean Corpuscular Hemoglobin 30.8 pg (27.0-31.0); Mean Corpuscular Volume 91.7 fL (78.0-98.0); Mean Platelet Volume 9.9 fL (7.4-10.4); Platelet Count 195 10x3/uL (130-400); Red Blood Cell (RBC) Count 4.84 mill/uL (4.70-6.10)
[2024-03-18 15:27] LABS: ALT (SGPT) 17 U/L (Less than 45); AST (SGOT) 25 U/L (11-34); Albumin 4.5 g/dL (3.1-4.5); Alkaline Phosphatase 66 U/L (40-110); Anion Gap 20 mmol/L (10-20); BUN (Urea Nitrogen) 14 mg/dL (8.4-25.7); Bilirubin, Total 1.1 mg/dL (0.3-1.2); Calc. Creatinine Clearance 0 mL/min (70-130); Calcium 9.3 mg/dL (7.8-10.44); Carbon Dioxide 19 mmol/L (22-29); Chloride 102 mmol/L (98-107); Estimated GFR 108; Globulin 3.4 g/dL (2.4-3.5); Glucose 116 mg/dL (70-105); Potassium 3.7 mmol/L (3.5-5.1); Protein, Total 7.9 g/dL (6.0-8.3); Sodium 137 mmol/L (136-145)
[2024-03-18 15:31] LABS: Troponin I 0.012 ng/mL (< 0.028)
== END 2024-03-18 16:27 | disposition home or self-care (01) ==
LOC: ERS 13:33
DX: R07.1 Chest pain on breathing (principal); E11.9 Type 2 diabetes mellitus without complications; I25.10 Atherosclerotic heart disease of native coronary artery without angina pectoris; Z79.84 Long term (current) use of oral hypoglycemic drugs; Z79.82 Long term (current) use of aspirin; Z79.899 Other long term (current) drug therapy
CPT/HCPCS: 36415; 71045; 71275; 80053; 82805; 83605; 83880; 84484; 85025; 87040; 93005; 94760; 96374; J2270; Q9967

== ENCOUNTER 2024-10-17 16:19 | Outpatient (CLI) | payer BC | END 2024-10-17 16:20 | disposition home or self-care (01) | LOC: BICRAD 16:19 | PROVIDERS: ATTEND Family Medicine | DX: M89.8X1 Other specified disorders of bone, shoulder (principal) ==

== ENCOUNTER 2025-01-10 11:30 | Outpatient (CLI) | payer BC | END 2025-01-10 11:31 | disposition home or self-care (01) | LOC: MRI 11:30 | PROVIDERS: ATTEND Orthopaedic Surgery | DX: S16.1XXA Strain of muscle, fascia and tendon at neck level, initial encounter (principal); M47.812 Spondylosis without myelopathy or radiculopathy, cervical region; M48.02 Spinal stenosis, cervical region; Z95.0 Presence of cardiac pacemaker | CPT/HCPCS: 71046; 72141; 76014 ==